=== PATIENT | male | born 1980 | race Caucasian/White ===

== ENCOUNTER 2018-05-14 23:59 | Emergency (ER) | payer OTHER ==
[~2018-05-14] VITALS: Ht 182.9 cm; Wt 74.0 kg
[~2018-05-14 23:59] MED LIST: FINA5TAB PO; OMEP10CA4 PO; TAMS-11 PO
[2018-05-15] MEDS ORDERED: [UNRECOGNIZED DRUG - OTHER] (00:04)
[2018-05-15 00:16] VITALS: BP 117/90
[2018-05-15 00:36] LABS: BASOPHILS # (AUTO) 0.06 x10^3/uL (0-0.1); BASOPHILS % (AUTO) 1 % (0-1); EOSINOPHILS # (AUTO) 0.09 x10^3/uL (0-0.4); EOSINOPHILS % (AUTO) 1 % (1-7); LYMPHOCYTES # (AUTO) 2.61 x10^3/uL (1-3.4); LYMPHOCYTES % (AUTO) 31 % (22-44); MD NO; MEAN CORPUSCULAR HEMOGLOBIN 31.8 pg (27.5-34.5); MEAN CORPUSCULAR HGB CONC 34.2 g/dL (33.2-36.2); MEAN PLATELET VOLUME 7.7 fL (7.4-10.4); MONOCYTES # (AUTO) 0.97 x10^3/uL (0.2-0.8); MONOCYTES % (AUTO) 12 % (2-9); NEUTROPHILS # (AUTO) 4.64 x10^3/uL (1.8-6.8); NEUTROPHILS % (AUTO) 55 % (42-75); PLATELET COUNT 247 x10^3/uL (130-400); RED BLOOD COUNT 4.84 x10^6/uL (4.38-5.82); RED CELL DISTRIBUTION WIDTH 13.7 % (9.4-14.8)
== END 2018-05-15 ==
LOC: ED 05-15 01:10
DX: K64.8 Other hemorrhoids (principal); F17.200 Nicotine dependence, unspecified, uncomplicated; Z88.0 Allergy status to penicillin
CPT/HCPCS: 36415; 85025; 99283

== ENCOUNTER 2020-06-04 09:12 | Emergency (ER) | payer OTHER ==
[~2020-06-04] VITALS: Ht 182.9 cm; Wt 74.5 kg
[~2020-06-04 09:12] MED LIST changes: -OMEP10CA4 PO; +OMEP10CA5 PO; +[UNRECOGNIZED DRUG - OTHER]
[2020-06-04 09:32] VITALS: BP 116/79
--- NOTE | 2020-06-04 09:45 | NUR ---
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
== END 2020-06-04 10:58 | disposition home or self-care (01) ==
LOC: ED 10:38
DX: K64.8 Other hemorrhoids (principal); K59.00 Constipation, unspecified; K62.3 Rectal prolapse; Z88.0 Allergy status to penicillin
CPT/HCPCS: 99282